=== PATIENT | male | born 1980 | race Caucasian/White ===

== ENCOUNTER 2020-08-31 09:31 | Emergency (ER) | payer MEDICAID ==
[~2020-08-31] VITALS: Ht 162.6 cm; Wt 91.6 kg
[2020-08-31 09:37] VITALS: BP 114/76
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
--- NOTE | 2020-08-31 11:00 | NUR ---
PT PLACED IN 4" FABRICATED RIGHT WRIST SPLINT AND RIGHT SHOULDER IMMOBOLIZER. PT CMS WNL BEFORE AND AFTER, ERMD NOTIFIED.
[2020-08-31 11:09] VITALS: BP 112/71
--- NOTE | 2020-08-31 11:10 | NUR ---
CLEARED FOR D/C BYDR OLIVIER; PT D/C WITH PRESCRIPTION, INSTRUCTIONS ON WRIST FRACTURE & LIST OF ORTHOPEDIC SPECIALISTS FOR FF/UP; PT FULLY UNDERSTANDS ALL MATERIALS GIVEN RE C/C; HAS NO FURTHER QUESTIONS; AOX4;VSS; AMBULATORY WITH STEADY GAIT; SPLINT APPLIED BY TECH, WITH SHOULDER SLING; NO SIGNS OF ACUTE DISTRESS
== END 2020-08-31 11:10 | disposition home or self-care (01) ==
LOC: MED 09:31
DX: S52.591A Other fractures of lower end of right radius, initial encounter for closed fracture (principal); V87.8XXA Person injured in other specified noncollision transport accidents involving motor vehicle (traffic), initial encounter; Y93.89 Activity, other specified; Y92.89 Other specified places as the place of occurrence of the external cause; Y99.8 Other external cause status
CPT/HCPCS: 71045; 73030; 73080; 73110; 99284